=== PATIENT | female | born 1965 | race Caucasian/White ===

== ENCOUNTER 2021-01-08 03:45 | Outpatient (CLI) | payer BC, SELFPAY ==
[2021-01-08 09:56] LABS: Source Nasal/Nares
[2021-01-08 13:42] LABS: COVID-19 PCR Negative (Negative)
== END 2021-01-08 03:46 | disposition home or self-care (01) ==
LOC: LBO 03:45
PROVIDERS: PCP Internal Medicine; Visit Provider Podiatrist
DX: Z20.822 Contact with and (suspected) exposure to COVID-19 (principal); Z01.818 Encounter for other preprocedural examination
CPT/HCPCS: 87635

== ENCOUNTER 2021-01-11 06:22 | Day surgery (SDC) | payer BC, SELFPAY ==
[2021-01-11 06:28] VITALS: BP 132/80; PULSE 79; RESP 16; TEMP 36.4; O2SAT 98
--- NOTE | 2021-01-11 06:54 | W.PM.HP.N ---
Date of service: 01/11/21 Time of Service: 06:54 History of Present Illness History of Present Illness Chief Complaint: End-stage arthrosis first MPJ right foot Narrative: 55-year-old female with increasing pain associated with degenerative changes of the right first metatarsal phalangeal joint. Nonoperative treatments have failed to provide sufficient relief of symptoms and she is opting for surgical intervention PFS Medical History GERD (gastroesophageal reflux disease) Hiatal hernia HLD (hyperlipidemia) Hypothyroidism Seasonal allergies Surgical History Hx of Achilles tendon repair Hx of appendectomy Hx of tonsillectomy Social History Smoking/Tobacco Use Status: Former Tobacco Use Quit Date: 05/04/13 Smoking risk assessment performed?: Yes Alcohol Intake: current Alcohol Intake frequency: a few times a month Drug use: Never Substance use type: does not use Do you feel safe at home: Yes Do you feel safe in your relationship?: Yes Meds Allergies and Home Medications Allergies Allergy/AdvReac Type Severity Reaction Status Date / Time No Known Allergies Allergy Unverified 01/11/21 06:37 Home Medications Medication Instructions Recorded Confirmed Type atorvastatin 10 mg PO DAILY 01/08/21 01/11/21 History celecoxib [Celebrex] 200 mg PO DAILY 01/08/21 01/11/21 History levothyroxine [Synthroid] 75 mcg PO DAILY 01/08/21 01/11/21 History loratadine-pseudoephedrine 1 tab PO DAILY 01/08/21 01/11/21 History [Claritin-D 12 Hour] montelukast [Singulair] 10 mg PO DAILY 01/08/21 01/11/21 History omeprazole magnesium [Prilosec OTC] 20 mg PO DAILY 01/08/21 01/11/21 History sertraline 100 mg PO DAILY 01/08/21 01/11/21 History Exam Narrative Exam Narrative: 55-year-old female in no acute distress. Head is normocephalic Eyes PERRLA Hearing is adequate Uvula is midline Heart had regular rate rhythm no murmurs heard Lung stahl are clear Abdomen was soft bowel sounds appreciated x4 Peripheral pulses at the ankle palpable 2 out of 4 bilaterally without edema. Calves are soft to palpation. CFT is under 3 seconds to all toes Muscle groups 5 out of 5 bilaterally Skeletal exam is remarkable for degenerative changes about the first MPJ the right foot with marked decreased range of motion, periarticular tenderness to direct palpation. Sesamoid complex appeared asymptomatic on palpation. Neurologically grossly intact Impressions: Degenerative arthrosis first MPJ right foot Plan: Phase being brought to the OR for fusion first metatarsal phalangeal joint right foot. She understands risk and complications including the potential for pain, scarring, infection, malunion, delayed union, nonunion, difficulty with the hardware potentially requiring its removal and/or revisional procedures. Nerve injury potential was reviewed. All questions were answered in detail. Informed consent has been obtained. No promises made to the final outcome of the surgery. Results Last Vital Signs Temp 36.4 C L 01/11/21 06:28 Pulse 79 01/11/21 06:28 Resp 16 01/11/21 06:28 BP 132/80 01/11/21 06:28 Pulse Ox 98 01/11/21 06:28
--- NOTE | 2021-01-11 06:59 | ANES.PREOP_ITS ---
General Info Date of Service Date Performed: 01/11/21 Height: 5 ft 7 in Weight: 88.4 kg Body Mass Index (BMI): 30.5 Surgical Procedure: Operation Date: 01/11/21 07:40 Proposed Procedures Side Surgeon p Fusion (R) 1st MPJ Right Fabricio Mckay DPM Meds Allergies and Home Medications Allergies Allergy/AdvReac Type Severity Reaction Status Date / Time No Known Allergies Allergy Unverified 01/11/21 06:37 Home Medication Medication Instructions Recorded atorvastatin 10 mg PO DAILY 01/08/21 celecoxib [Celebrex] 200 mg PO DAILY 01/08/21 levothyroxine [Synthroid] 75 mcg PO DAILY 01/08/21 loratadine-pseudoephedrine 1 tab PO DAILY 01/08/21 [Claritin-D 12 Hour] montelukast [Singulair] 10 mg PO DAILY 01/08/21 omeprazole magnesium [Prilosec OTC] 20 mg PO DAILY 01/08/21 sertraline 100 mg PO DAILY 01/08/21 Current Visit Medications: Current Medications Generic Name Dose Route Start Last Admin Trade Name Freq PRN Reason Stop Dose Admin Sodium Chloride 500 mls @ 0 mls/hr 01/11/21 06:00 Saline 500ml Bag IV PRN PRN As Directed Cefazolin Sodium 2,000 mg/ 100 mls @ 200 mls/hr 01/11/21 06:00 Sodium Chloride IV 01/11/21 23:59 PREOP JACINDA Ringer's Solution 1,000 mls @ 80 mls/hr 01/11/21 06:00 IV 02/09/21 23:59 INFUSION JACINDA IV Miscellaneous Supplies 1 each 01/11/21 06:00 Iv Access IV DIRECTED JACINDA IV Miscellaneous Supplies 1 each 01/11/21 06:00 Iv Access IV 02/09/21 23:59 DIRECTED JACINDA Povidone Iodine 0 ml 01/11/21 06:00 Povidone-Iodine Soln. 118 Ml Btl TP DIRECTED JACINDA Sodium Chloride 0 ml 01/11/21 06:00 Normal Saline Flush 10 Ml Syr IVP PRN PRN Sodium Chloride 0 ml 01/11/21 06:00 Normal Saline Flush 10 Ml Syr IV 02/09/21 23:59 PRN PRN Sodium Chloride 0 ml 01/11/21 06:00 Normal Saline 10 Ml Vial IJ 02/09/21 23:59 DIRECTED PRN Sterile Water 0 ml 01/11/21 06:00 Water,Injection,Sterile 10 Ml Vial IJ 02/09/21 23:59 DIRECTED PRN [facility] Medical History Medical History GERD (gastroesophageal reflux disease) Hiatal hernia HLD (hyperlipidemia) Hypothyroidism Seasonal allergies Surgical History Surgical History Hx of Achilles tendon repair Hx of appendectomy Hx of tonsillectomy Tobacco Smoking/Tobacco Use Status: Former Tobacco Use Alcohol Alcohol Intake: current Alcohol intake frequency: a few times a month Substance Use Substance use: Never Substance use type: does not use Vital Signs and Lab Results Vital Signs Most Recent Vital Signs in EMR: Most Recent Vital Signs Temp Pulse Resp BP Pulse Ox 36.4 C L 79 16 132/80 98 01/11/21 06:28 01/11/21 06:28 01/11/21 06:28 01/11/21 06:28 01/11/21 06:28 Lab Results Blood Type / Crossmatch: No Data to Display Complete Blood Count: No Data to Display Complete Metabolic Panel: No Data to Display Liver Function Panel: No Data to Display Coagulation Panel: No Data to Display Cardiac Panel: No Data to Display Arterial Blood Gas: No Data to Display Venous Blood Gas: No Data to Display Pancreas Panel: No Data to Display Thyroid Panel: No Data to Display Infectious Disease: Coronavirus (COVID-19)(PCR) Negative (Negative) 01/08/21 09:03 01/08/21 Coronavirus 2019 Source Nasal/Nares 01/08/21 09:03 01/08/21 Blood Cultures: No Data to Display Toxicology Panel: No Data to Display Anesthesia Assessment and Plan Anesthesia History Personal History: PONV Family History: No Family History of Anesthesia Complications Exercise Tolerance Exercise Tolerance: Metabolic Equivalents>4 Pertinent Negatives Pertinent Negatives: No Symptoms of GERD, No Major Cardiovascular Symptoms or Complaints and No Major Pulmonary Symptoms or Complaints Cardiac & Pulmonary Exam Cardiac Exam: Normal S1/S2 Heart Sounds Pulmonary Exam: Clear Bilateral Breath Sounds Airway Exam Known Difficult Airway: No Mallampati Class: 4 Mouth Opening: Narrow (< 3cm) Thyromental Distance: Greater than 3 cm Neck Range of Motion: Full ROM Neck Circumference: Normal Teeth Condition: Normal Dentition ASA Classification ASA Score: ASA 2 Emergency Case?: No NPO Status NPO Status: NPO Clears >2 hours, Solids >8 hours Anesthesia Plan Resuscitation Status: Full Code Anesthesia Technique: General Anesthesia Airway Planned: Natural Airway Monitors Used: Standard Monitors
[2021-01-11] MEDS: Lactated Ringers 1,000 ML 80 ML IV (07:02)
[2021-01-11 07:07] VITALS: BMI 30.5
[2021-01-11] MEDS: ceFAZolin 2,000 MG in Normal Saline 100 ML 200 MG IV (07:32)
[2021-01-11] MEDS: Bupivacaine 0.5% Pres-Free 30 ML VIAL (07:45)
[2021-01-11] MEDS: Lidocaine 1% Pres-Free 5 ML VIAL (07:45)
[2021-01-11] MEDS: Dexamethasone 4 MG/ML VIAL (08:54)
--- NOTE | 2021-01-11 09:05 | W.PM.DSUDISC ---
Discharge Plan Disposition Patient Disposition: HOME Condition: Good Discharge Details Reason For Visit: Fusion first MPJ right foot Attending Provider: Fabricio Mckay Primary Care Provider: Windy Cisneros Home Meds and New Rx's Prescriptions: New oxycodone-acetaminophen 5-325 mg tablet 1 tab PO Q6H PRN (Reason: pain) Qty: 9 RF: 0 Continued celecoxib [Celebrex] 200 mg Capsule 200 mg PO DAILY RF: 0 atorvastatin 10 mg Tablet 10 mg PO DAILY RF: 0 sertraline 100 mg Tablet 100 mg PO DAILY RF: 0 levothyroxine [Synthroid] 75 mcg Tablet 75 mcg PO DAILY RF: 0 Claritin-D 12 Hour 5-120 mg Tablet Extended Release 12 Hr 1 tab PO DAILY RF: 0 montelukast [Singulair] 10 mg Tablet 10 mg PO DAILY RF: 0 omeprazole magnesium [Prilosec OTC] 20 mg Tablet,Delayed Release (Dr/Ec) 20 mg PO DAILY RF: 0 Discharge Instructions Equipment/Supplies: Non-Weight Bearing Crutches Activity:: Elevate Remove Dressings/Wound Care:: Do Not Remove Shower/Bathe:: Cover Diet:: Normal Diet Discharge Orders Discharge Orders: Discharge Order (Routine); Ordered 01/11/21 Ordered By: Fabricio Mckay DS: Diagnosis Discharge Diagnosis (1) Hallux rigidus of right foot: Status: Acute
[2021-01-11 09:10] VITALS: BP 106/59; PULSE 71; RESP 18; TEMP 36.1; O2SAT 97
--- NOTE | 2021-01-11 09:11 | ROE_ITS ---
Date of service: 01/11/21 Time of Service: 09:11 Operative Note Operative Note Refer to Anesthesia Record They was brought to the operative suite placed in the supine position with the right foot was prepped and draped in the usual sterile podiatric fashion. Timeout was performed for safe surgery. Attention was directed to the right foot which was exsanguinated and a well-padded ankle tourniquet inflated 250 mmHg. Attention was directed to the first MPJ where a 5 cm incision was made medial and parallel to the extensor hallucis longus tendon. The incision was deepened in controlled depth fashion hemostasis being acquired with electrocautery. Dissection was carried down to the joint capsule which was incised midline dorsal. Joint capsule was mobilized medially and laterally in the first MPJ inspected. Periarticular exostosis formations are noted with severe degeneration of the articular surfaces. At this point we proceeded to proceed with a fusion procedure. Utilizing the reamers associated with the Arthrex foot and ankle kit, the head of first metatarsal was mottled so as to remove all articular cartilage and form a nice smooth convex surface. The base of the proximal phalanx was then likewise reamed so as to remove the articular cartilage remnants and create a nice convex surface. The joint was positioned and temporarily fixated after copious irrigation of normal saline with a K wire. Once I was satisfied that the hallux was in good position the Arthrex MTP compression plate was chosen. The plate was temporarily fixated with 2 Juli wires. The distal component of the plate was then secured with 314 mm low- profile titanium screws product number [id number]. The proximal holes were then filled with 216 mm length low-profile screws [id number] [id number] 3?[id number] 818 mm Arthrex flat head screw. Excellent positioning was appreciated good apposition of the articular surfaces noted across the joint. Copious irrigation was performed. The joint capsule was repaired with simple interrupted suture 3-0 Vicryl. Subcutaneous layer was repaired with simple interrupted suture 4-0 Vicryl. The skin was coapted with continuous running suture of 4-0 Monocryl. 4 mg dexamethasone phosphate was infused deeply into thewound. Mastisol applied to the periwound region followed by quarter inch Steri-Strips Xeroform gauze fluff compression dressings. To all toes. Tourniquet was released at 67 minutes with vascularity returning immediately. Posterior splint was then applied to maintain nonweightbearing status and protection of the surgical site. Stephenie left the OR with vital signs stable, vascular status intact, sharp and sponge counts were correct. Should be followed by myself in the office next week.
--- NOTE | 2021-01-11 09:22 | W.ANESPOSTOP ---
Postoperative Evaluation Date, Time and Location Date Performed: 01/11/21 Time Performed: :22 Patient Location: Day Surgery Unit Vital Signs Most Recent Imported Vital Signs: Most Recent Vital Signs Temp Pulse Resp BP Pulse Ox 36.1 C L 71 18 106/59 L 97 01/11/21 09:10 01/11/21 09:10 01/11/21 09:10 01/11/21 09:10 01/11/21 09:10 Pain Score Most Recent Pain Score: Most Recent Pain Score Pain Level 0 01/11/21 09:10 Assessment Mental Status: Awake (Alert & Oriented to Patient Baseline) Airway and Respiratory Function: Patent airway with normal (patient baseline) respiratory exam Cardiovascular Function: Hemodynamically Stable Hydration Status: Adequately Hydrated Nausea & Vomiting: No Nausea or Vomiting Pain: Pt. Denies Any Pain Peripheral Nerve Block: Patient did not receive a nerve block
[2021-01-11 09:48] VITALS: BP 111/62; PULSE 60; RESP 16; TEMP 36.4; O2SAT 100
[2021-01-11 10:42] VITALS: BP 132/74; PULSE 65; RESP 16; TEMP 36.2; O2SAT 100
[2021-01-11] MEDS: HYDROcodone 5/Acetaminophen 325 TAB PO (10:42)
[2021-01-11 11:13] VITALS: BP 121/72; PULSE 66; RESP 18; TEMP 36.3; O2SAT 99
== END 2021-01-11 11:12 | disposition home or self-care (01) ==
PROVIDERS: PCP Internal Medicine; Visit Provider Podiatrist
PROC: (CPT 26850; principal; 2021-01-11 07:30)
DX: M20.21 Hallux rigidus, right foot (principal); K21.9 Gastro-esophageal reflux disease without esophagitis; E78.5 Hyperlipidemia, unspecified
CPT/HCPCS: 28289; J0690; J1100; J1885; J2001; J2250; J2405

== ENCOUNTER → 2023-02-23 02:46 | Outpatient (CLI) | payer OTHER, SELFPAY ==
--- NOTE | 2023-02-23 07:15 | DI.RAD_ITS ---
Exam(s) XR FOOT LT COMPLETE EXAM: XR FOOT LT COMPLETE CLINICAL HISTORY: Lt Great toe pain,foot pain, m79.672,m79.675. TECHNIQUE: 2D digital imaging was performed. COMPARISON: No exams were available for comparison FINDINGS: 3 views No evidence of acute fracture or diastasis of the Lisfranc joint. There are significant degenerative changes at the great toe metatarsophalangeal joint. Some joint space narrowing and dorsal osteophyt es evident. Other MTP joints appear unremarkable. Bone density normal. No osseous lesions. Moderate size inferior calcaneal spur is noted. IMPRESSION: Degenerative changes in the great toe metatarsophalangeal joint. DATA REPOSITORY: RADIATION DOSE DELIVERED:
== END ==
PROVIDERS: PCP Internal Medicine; Visit Provider Podiatrist
DX: M19.072 Primary osteoarthritis, left ankle and foot (principal)
CPT/HCPCS: 73630